=== PATIENT | male | born 1960 | race African-American/Black ===

== ENCOUNTER 2018-04-16 19:24 | Inpatient (IN) | payer MEDICAID ==
[~2018-04-16] VITALS: Ht 180.3 cm; Wt 82.6 kg
[2018-04-16 22:54] LABS: BASOPHILS % 1.4 % (0.0-2.0); EOSINOPHILS % 0.4 % (0.0-5.0); HEMOGLOBIN. 12.2 g/dL (14.0-18.0); LYMPHOCYTES % 21.6 % (20.0-50.0); MEAN CORPUSCULAR VOLUME 74.9 fL (80.0-94.0); MEAN PLATELET VOLUME 9.3 fl (7.4-10.4); MONOCYTES % 10.9 % (2.0-8.0); NEUTROPHILS % 65.7 % (40.0-76.0); PLATELET 150 x1000/uL (130-400); RED BLOOD CELL COUNT 5.07 mill/uL (4.7-6.1); RED CELL DISTRIBUTION WIDTH 20.7 % (11.6-14.6)
[2018-04-16 22:57] LABS: CHLORIDE 104 mEq/L (98-107)
[2018-04-16 23:00] LABS: INR 1.6; PROTHROMBIN TIME 16.1 sec (9.1-11.1)
[2018-04-16] MEDS ORDERED: FUROSEMIDE 40MG/4ML VIAL IV ONE (23:15)
[2018-04-16] MEDS ORDERED: ASPIRIN 81MG TABLET PO ONE (23:15)
[2018-04-17] MEDS: CLONIDINE 0.1MG TABLET PO PRN ×2 (11:14→12:27)
[2018-04-17 12:24] LABS: CHLORIDE 102 mEq/L (98-107)
[2018-04-17] MEDS: NITROGLYCERIN 0.4MG TABLET SL SL PRN ×2 (12:27→12:31)
[2018-04-17] MEDS ORDERED: FUROSEMIDE 40MG/4ML VIAL IVP ONE (12:30)
[2018-04-17] MEDS ORDERED: IPRATROPIUM/ALBUTEROL 0.5-3(2.5)MG/3ML NEB HHN PRN (12:30)
[2018-04-17] MEDS ORDERED: ONDANSETRON HCL 4MG/2ML INJ IV PRN (12:30)
[2018-04-17] MEDS ORDERED: ACETAMINOPHEN 325MG TABLET PO PRN (12:30)
[2018-04-17] MEDS ORDERED: CLONIDINE 0.1MG TABLET PO PRN (12:30)
[2018-04-17] MEDS ORDERED: NITROGLYCERIN 0.4MG TABLET SL SL PRN ×2 (12:30)
[2018-04-17] MEDS ORDERED: ENALAPRIL 2.5MG/2ML VIAL 2ML IV ONE (12:45)
[2018-04-17 13:31] LABS: BG BASE EXCESS -1.6 mmol/L (-2.0-2.0); BG CARBOXYHEMOGLOBIN 1.1 % (0.5-1.5); BG DEOXYHEMOGLOBIN 6.7 % (0.0-5.0); BG FRACTION INSPIRED OXYGEN 21; BG HCO3 ACT 21.2 mmol/L (22.0-26.0); BG METHEMOGLOBIN 0.3 % (0.0-1.5); BG OXYGEN SATURATION 93.2 % (92.0-98.5); BG OXYHEMOGLOBIN 91.9 % (94.0-97.0); BG PCO2 30.3 mmHg (35.0-45.0); BG PH 7.462 (7.350-7.450); BG SAMPLE SITE LEFT RADIAL; BG VENT MODE ROOM AIR
[2018-04-17 16:00] VITALS: BP_SYST 148; BP_SYST 153; BP_DIAS 100; BP_DIAS 107; BP_DIAS 98
[2018-04-17 17:24] LABS: D-DIMER 1.62 mg/L FEU (<0.50); INR 1.7; PROTHROMBIN TIME 17.1 sec (9.1-11.1)
[2018-04-17] MEDS: LOSARTAN POTASSIUM 100 MG TABLET PO SCH (17:45)
[2018-04-17] MEDS: FUROSEMIDE 40MG/4ML VIAL IVP SCH (17:45)
[2018-04-17] MEDS: AMLODIPINE 2.5MG TABLET PO SCH (17:45)
[2018-04-17] MEDS: NITROGLYCERIN OINT 1GM/INCH UDPKT TD SCH ×2 (17:46→22:54)
[2018-04-17] MEDS: POTASSIUM CHLORIDE 20MEQ TABLET SR PO SCH (17:46)
[2018-04-17 17:54] LABS: HEPATITIS B SURFACE ANTIGEN NEGATIVE
[2018-04-17 18:24] LABS: HEPATITIS A AB IGM NEGATIVE (NEGATIVE)
[2018-04-17 20:00] VITALS: BP 146/116
[2018-04-17] MEDS: CARVEDILOL 6.25 MG TABLET PO SCH (20:54)
[2018-04-17] MEDS ORDERED: LOSARTAN POTASSIUM 25 MG TABLET PO SCH (21:00)
[2018-04-18] VITALS: BP 122/75
[2018-04-18 04:00] VITALS: BP 114/72
[2018-04-18] MEDS: NITROGLYCERIN OINT 1GM/INCH UDPKT TD SCH ×4 (05:18→23:49)
[2018-04-18] MEDS: FUROSEMIDE 40MG/4ML VIAL IVP SCH ×2 (06:53→17:36)
[2018-04-18 08:00] VITALS: BP 127/88
[2018-04-18 08:05] LABS: BASOPHILS % 0.4 % (0.0-2.0); EOSINOPHILS % 0.1 % (0.0-5.0); HEMATOCRIT. 36.2 % (42.0-52.0); HEMOGLOBIN. 11.7 g/dL (14.0-18.0); LYMPHOCYTES % 16.9 % (20.0-50.0); MEAN CORPUSCULAR VOLUME 74.6 fL (80.0-94.0); MONOCYTES % 13.4 % (2.0-8.0); NEUTROPHILS % 69.2 % (40.0-76.0); PLATELET 149 x1000/uL (130-400); RED BLOOD CELL COUNT 4.86 mill/uL (4.7-6.1); RED CELL DISTRIBUTION WIDTH 20.7 % (11.6-14.6)
[2018-04-18 08:13] LABS: CHLORIDE 99 mEq/L (98-107)
[2018-04-18 08:20] LABS: LDL CHOLESTEROL 87 mg/dL (5-100)
[2018-04-18 08:21] LABS: HDL CHOLESTEROL 24 mg/dL (40-59)
[2018-04-18 08:50] LABS: DIGOXIN < 0.1 ng/mL (0.9-2.0)
[2018-04-18] MEDS: CARVEDILOL 6.25 MG TABLET PO SCH ×2 (09:54→20:43)
[2018-04-18] MEDS: AMLODIPINE 2.5MG TABLET PO SCH ×2 (09:54→20:43)
[2018-04-18] MEDS: ASPIRIN 81MG TABLET PO SCH (09:54)
[2018-04-18] MEDS: LOSARTAN POTASSIUM 100 MG TABLET PO SCH (09:54)
[2018-04-18] MEDS: POTASSIUM CHLORIDE 20MEQ TABLET SR PO SCH ×2 (09:54→17:36)
[2018-04-18 12:00] VITALS: BP 143/81
[2018-04-18 14:46] LABS: CLARITY URINE CLEAR (CLEAR); COLOR URINE YELLOW (YELLOW); KETONES URINE NEGATIVE (NEGATIVE); LEUKOCYTE ESTERASE URINE NEGATIVE (NEGATIVE); NITRITE URINE NEGATIVE (NEGATIVE); OCCULT BLOOD URINE NEGATIVE (NEGATIVE); PH URINE 7.5 (4.5-8.0); PROTEIN URINE NEGATIVE (NEGATIVE); SPECIFIC GRAVITY URINE 1.005 (1.005-1.030)
[2018-04-18 15:05] LABS: *AMPHETAMINES SCREEN URINE NEGATIVE (NEGATIVE); *BARBITURATES SCREEN URINE NEGATIVE (NEGATIVE); *BENZODIAZEPINES SCREEN URINE NEGATIVE (NEGATIVE)
[2018-04-18 15:06] LABS: *COCAINE SCREEN URINE PRESUMTIVE POSITIVE (NEGATIVE); CANNABINOID URINE SCREEN PRESUMTIVE POSITIVE (NEGATIVE); METHADONE URINE SCREEN NEGATIVE (NEGATIVE); OPIATES URINE SCREEN NEGATIVE (NEGATIVE); PHENCYCLIDINE URINE SCREEN NEGATIVE (NEGATIVE)
[2018-04-18 16:00] VITALS: BP 120/90
[2018-04-18 20:00] VITALS: BP 117/86
[2018-04-19] VITALS: BP 129/77
[2018-04-19 04:00] VITALS: BP 113/80
[2018-04-19] MEDS: NITROGLYCERIN OINT 1GM/INCH UDPKT TD SCH ×3 (05:00→16:55)
[2018-04-19] MEDS: FUROSEMIDE 40MG/4ML VIAL IVP SCH ×2 (06:23→16:55)
[2018-04-19 06:43] LABS: BASOPHILS % 0.5 % (0.0-2.0); EOSINOPHILS % 0.1 % (0.0-5.0); HEMATOCRIT. 35.5 % (42.0-52.0); HEMOGLOBIN. 11.6 g/dL (14.0-18.0); LYMPHOCYTES % 14.7 % (20.0-50.0); MEAN CORPUSCULAR HEMOGLOBIN 24.1 pg (28.0-32.0); MEAN CORPUSCULAR VOLUME 74.1 fL (80.0-94.0); MEAN PLATELET VOLUME 9.2 fl (7.4-10.4); MONOCYTES % 14.6 % (2.0-8.0); NEUTROPHILS % 70.1 % (40.0-76.0); PLATELET 144 x1000/uL (130-400); RED CELL DISTRIBUTION WIDTH 20.6 % (11.6-14.6)
[2018-04-19 06:44] LABS: CHLORIDE 94 mEq/L (98-107)
[2018-04-19 08:00] VITALS: BP 121/80
[2018-04-19] MEDS: AMLODIPINE 2.5MG TABLET PO SCH (09:00)
[2018-04-19] MEDS: ASPIRIN 81MG TABLET PO SCH (09:19)
[2018-04-19] MEDS: POTASSIUM CHLORIDE 20MEQ TABLET SR PO SCH ×2 (09:19→16:55)
[2018-04-19] MEDS: CARVEDILOL 6.25 MG TABLET PO SCH (09:19)
[2018-04-19] MEDS: LOSARTAN POTASSIUM 100 MG TABLET PO SCH (09:19)
[2018-04-19] MEDS ORDERED: POTASSIUM CHLORIDE 20MEQ TABLET SR PO NR (10:15)
[2018-04-19 15:26] VITALS: BP 102/65
[2018-04-19 16:00] VITALS: BP 118/59
== END 2018-04-19 17:50 | disposition home or self-care (01) | DRG 133 ==
LOC: ER 19:24 → 8WST 23:31 → EDBEDREQ 23:34 → EDBEDREQTM 23:34 → ENRESERV 04-17 14:22
PROVIDERS: ADMIT Internal Medicine; ATTEND Internal Medicine
DX: J96.00 Acute respiratory failure, unspecified whether with hypoxia or hypercapnia (principal); I50.43 Acute on chronic combined systolic (congestive) and diastolic (congestive) heart failure; D68.9 Coagulation defect, unspecified; Z86.74 Personal history of sudden cardiac arrest; I11.0 Hypertensive heart disease with heart failure; E78.5 Hyperlipidemia, unspecified; D64.9 Anemia, unspecified; R74.0 Nonspecific elevation of levels of transaminase and lactic acid dehydrogenase [LDH]; E78.00 Pure hypercholesterolemia, unspecified; E87.6 Hypokalemia; F12.90 Cannabis use, unspecified, uncomplicated; F14.10 Cocaine abuse, uncomplicated; I25.10 Atherosclerotic heart disease of native coronary artery without angina pectoris; I25.5 Ischemic cardiomyopathy; I45.10 Unspecified right bundle-branch block; R73.9 Hyperglycemia, unspecified; I25.2 Old myocardial infarction; Z95.1 Presence of aortocoronary bypass graft; Z87.891 Personal history of nicotine dependence
CPT/HCPCS: 36415; 36600; 71045; 80048; 80061; 80162; 80305; 82375; 82805; 82962; 83036; 83880; 84443; 84484; 85379; 86705; 86709; 86803; 87340; 93005; 93306; 93970; 96374; 96375; 99291; J1940

== ENCOUNTER 2018-06-14 11:14 | Inpatient (IN) | payer MEDICAID ==
[~2018-06-14] VITALS: Ht 180.3 cm; Wt 86.6 kg
[2018-06-14 12:30] LABS: BASOPHILS % 0.6 % (0.0-2.0); EOSINOPHILS % 0.4 % (0.0-5.0); HEMATOCRIT. 43.1 % (42.0-52.0); HEMOGLOBIN. 13.8 g/dL (14.0-18.0); LYMPHOCYTES % 25.1 % (20.0-50.0); MEAN CORPUSCULAR HEMOGLOBIN 23.7 pg (28.0-32.0); MEAN PLATELET VOLUME 9.7 fl (7.4-10.4); MONOCYTES % 13.3 % (2.0-8.0); NEUTROPHILS % 60.6 % (40.0-76.0); PLATELET 155 x1000/uL (130-400); RED BLOOD CELL COUNT 5.82 mill/uL (4.7-6.1); RED CELL DISTRIBUTION WIDTH 21.9 % (11.6-14.6)
[2018-06-14] MEDS ORDERED: FUROSEMIDE 40MG/4ML VIAL IV ONE (12:30)
[2018-06-14] MEDS ORDERED: NITROGLYCERIN OINT 1GM/INCH UDPKT TD ONE (12:30)
[2018-06-14] MEDS ORDERED: ASPIRIN 325MG EC TABLET PO ONE (12:30)
[2018-06-14 12:38] LABS: PROTHROMBIN TIME 20.2 sec (9.6-11.0)
[2018-06-14 12:39] LABS: CHLORIDE 95 mEq/L (98-107)
[2018-06-14] MEDS ORDERED: POTASSIUM CHLORIDE 20MEQ TABLET SR PO SCH ×2 (16:00→17:30)
[2018-06-14] MEDS ORDERED: MAGNESIUM/ALUMINUM HYDROXIDE/SIMETHICONE 30ML UDC PO PRN (16:15)
[2018-06-14] MEDS ORDERED: ACETAMINOPHEN 325MG TABLET PO PRN (16:15)
[2018-06-14] MEDS ORDERED: ONDANSETRON HCL 4MG/2ML INJ IV PRN (16:15)
[2018-06-14] MEDS ORDERED: ENOXAPARIN 40MG/0.4ML SYR SUBCUT SCH (16:15)
[2018-06-14] MEDS ORDERED: MAGNESIUM HYDROXIDE 400MG/5ML 30ML UDC PO PRN (16:15)
[2018-06-14] MEDS ORDERED: TEMAZEPAM 15MG CAPSULE PO PRN (16:15)
[2018-06-14] MEDS ORDERED: CLONIDINE 0.1MG TABLET PO PRN (16:15)
[2018-06-14] MEDS ORDERED: GUAIFENESIN 200MG/10ML SUGAR FREE UDC PO PRN (16:15)
[2018-06-14 17:24] VITALS: BP 145/102
[2018-06-14 17:27] VITALS: BP 145/102
[2018-06-14] MEDS ORDERED: FAMOTIDINE 20MG TABLET PO SCH (17:30)
[2018-06-14] MEDS: FUROSEMIDE 40MG/4ML VIAL IVP SCH (18:28)
[2018-06-14 20:00] VITALS: BP 138/100
[2018-06-14] MEDS ORDERED: METOLAZONE 10MG TABLET PO NR (20:00)
[2018-06-14] MEDS: FAMOTIDINE 20MG TABLET PO SCH (20:49)
[2018-06-14] MEDS: LOSARTAN POTASSIUM 50 MG TABLET PO SCH (21:03)
[2018-06-14] MEDS: SODIUM CHLORIDE 0.9% INJ 3ML FLUSH IVF SCH (21:04)
[2018-06-14] MEDS: AMLODIPINE 5MG TABLET PO SCH (21:04)
[2018-06-14] MEDS: CARVEDILOL 6.25 MG TABLET PO SCH (21:04)
[2018-06-14 23:57] VITALS: BP 131/74
[2018-06-15 04:00] VITALS: BP 133/78
[2018-06-15] MEDS: FUROSEMIDE 40MG/4ML VIAL IVP SCH ×2 (06:08→17:35)
[2018-06-15] MEDS: SODIUM CHLORIDE 0.9% INJ 3ML FLUSH IVF SCH ×3 (06:08→22:37)
[2018-06-15] MEDS: FAMOTIDINE 20MG TABLET PO SCH ×2 (08:45→22:34)
[2018-06-15] MEDS: AMLODIPINE 5MG TABLET PO SCH ×2 (08:45→22:35)
[2018-06-15] MEDS: ASPIRIN 81MG EC TABLET PO SCH (08:46)
[2018-06-15] MEDS: CARVEDILOL 6.25 MG TABLET PO SCH ×2 (08:46→22:34)
[2018-06-15] MEDS: LOSARTAN POTASSIUM 50 MG TABLET PO SCH ×2 (08:46→22:35)
[2018-06-15] MEDS: POTASSIUM CHLORIDE 20MEQ/PACKET PO SCH ×2 (08:48→17:56)
[2018-06-15 09:00] VITALS: BP 129/75
[2018-06-15 10:14] LABS: CHLORIDE 95 mEq/L (98-107)
[2018-06-15 12:00] VITALS: BP_SYST 114; BP_SYST 131; BP_DIAS 82; BP_DIAS 91
[2018-06-15 16:00] VITALS: BP_SYST 121; BP_SYST 141; BP_DIAS 80; BP_DIAS 91
[2018-06-15] MEDS ORDERED: LIDOCAINE HCL/PF 1% 2ML VIAL ONE (16:09)
[2018-06-15 16:42] LABS: BG BASE EXCESS 5.6 mmol/L (-2.0-2.0); BG CARBOXYHEMOGLOBIN 0.8 % (0.5-1.5); BG DEOXYHEMOGLOBIN 7.5 % (0.0-5.0); BG FRACTION INSPIRED OXYGEN 21; BG HCO3 ACT 27.8 mmol/L (22.0-26.0); BG METHEMOGLOBIN 0.1 % (0.0-1.5); BG OXYGEN SATURATION 92.4 % (92.0-98.5); BG OXYHEMOGLOBIN 91.6 % (94.0-97.0); BG PCO2 32.8 mmHg (35.0-45.0); BG PH 7.546 (7.350-7.450); BG PO2 64.8 mmHg (75.0-100.0); BG SAMPLE SITE RIGHT BRACHIAL; BG TOTAL HEMOGLOBIN 13.4 g/dL (12.0-18.0); BG VENT MODE ROOM AIR
[2018-06-15] MEDS ORDERED: METOLAZONE 10MG TABLET PO NR (18:00)
[2018-06-15 20:00] VITALS: BP 133/90
[2018-06-15 20:40] LABS: CHLORIDE 90 mEq/L (98-107)
[2018-06-16] VITALS (7 sets, daily range): BP systolic 99–124; BP diastolic 68–86
[2018-06-16 06:33] LABS: CHLORIDE 86 mEq/L (98-107)
[2018-06-16] MEDS: FUROSEMIDE 40MG/4ML VIAL IVP SCH (06:37)
[2018-06-16] MEDS: SODIUM CHLORIDE 0.9% INJ 3ML FLUSH IVF SCH ×3 (06:41→22:41)
[2018-06-16 08:56] LABS: CLARITY URINE CLEAR (CLEAR); COLOR URINE YELLOW (YELLOW); KETONES URINE NEGATIVE (NEGATIVE); LEUKOCYTE ESTERASE URINE NEGATIVE (NEGATIVE); NITRITE URINE NEGATIVE (NEGATIVE); OCCULT BLOOD URINE NEGATIVE (NEGATIVE); PROTEIN URINE NEGATIVE (NEGATIVE); SPECIFIC GRAVITY URINE 1.008 (1.005-1.030)
[2018-06-16] MEDS: AMLODIPINE 5MG TABLET PO SCH ×2 (09:00→21:00)
[2018-06-16] MEDS: CARVEDILOL 6.25 MG TABLET PO SCH ×2 (09:05→21:00)
[2018-06-16] MEDS: ASPIRIN 81MG EC TABLET PO SCH (09:05)
[2018-06-16] MEDS: FAMOTIDINE 20MG TABLET PO SCH ×2 (09:05→22:50)
[2018-06-16] MEDS: LOSARTAN POTASSIUM 50 MG TABLET PO SCH ×2 (09:05→21:00)
[2018-06-16] MEDS ORDERED: METOLAZONE 5MG TABLET PO NR (09:45)
[2018-06-16] MEDS ORDERED: POTASSIUM CHLORIDE 20MEQ TABLET SR PO NR (12:45)
[2018-06-16] MEDS: FUROSEMIDE 100MG/10ML VIAL IVP SCH (17:08)
[2018-06-16] MEDS: POTASSIUM CHLORIDE 20MEQ TABLET SR PO SCH (17:08)
[2018-06-16] MEDS: IPRATROPIUM/ALBUTEROL 0.5-3(2.5)MG/3ML NEB INH PRN ×2 (17:12→22:28)
[2018-06-16] MEDS: MAGNESIUM OXIDE 400MG TABLET PO PRN (17:48)
[2018-06-17] VITALS: BP 99/63
[2018-06-17 04:00] VITALS: BP 101/69
[2018-06-17 05:51] LABS: CHLORIDE 81 mEq/L (98-107)
[2018-06-17 05:58] LABS: BASOPHILS % 0.4 % (0.0-2.0); EOSINOPHILS % 0.1 % (0.0-5.0); HEMATOCRIT. 34.8 % (42.0-52.0); HEMOGLOBIN. 11.7 g/dL (14.0-18.0); LYMPHOCYTES % 14.5 % (20.0-50.0); MEAN CORPUSCULAR HEMOGLOBIN 24.2 pg (28.0-32.0); MEAN CORPUSCULAR VOLUME 72.4 fL (80.0-94.0); MEAN PLATELET VOLUME 9.3 fl (7.4-10.4); MONOCYTES % 13.9 % (2.0-8.0); NEUTROPHILS % 71.1 % (40.0-76.0); PLATELET 136 x1000/uL (130-400); RED BLOOD CELL COUNT 4.81 mill/uL (4.7-6.1); RED CELL DISTRIBUTION WIDTH 21.6 % (11.6-14.6)
[2018-06-17] MEDS: FUROSEMIDE 100MG/10ML VIAL IVP SCH ×2 (07:03→18:09)
[2018-06-17] MEDS: SODIUM CHLORIDE 0.9% INJ 3ML FLUSH IVF SCH ×3 (07:09→21:15)
[2018-06-17 08:00] VITALS: BP 102/69
[2018-06-17] MEDS: LOSARTAN POTASSIUM 50 MG TABLET PO SCH ×2 (09:00→21:00)
[2018-06-17] MEDS: CARVEDILOL 6.25 MG TABLET PO SCH ×2 (09:00→21:00)
[2018-06-17] MEDS: AMLODIPINE 5MG TABLET PO SCH ×2 (09:00→21:00)
[2018-06-17] MEDS: MAGNESIUM OXIDE 400MG TABLET PO PRN (09:14)
[2018-06-17] MEDS: POTASSIUM CHLORIDE 20MEQ TABLET SR PO SCH ×2 (09:14→18:09)
[2018-06-17] MEDS: FAMOTIDINE 20MG TABLET PO SCH ×2 (09:15→21:15)
[2018-06-17] MEDS: ASPIRIN 81MG EC TABLET PO SCH (09:15)
[2018-06-17 10:06] LABS: PHOSPHORUS 3.3 mg/dL (2.5-4.9)
[2018-06-17] MEDS ORDERED: MAGNESIUM 1 G PREMIX 100 ML IV NR (11:00)
[2018-06-17 12:00] VITALS: BP 98/67
[2018-06-17 16:00] VITALS: BP 96/64
[2018-06-17 20:00] VITALS: BP 101/77
[2018-06-18] VITALS: BP 114/78
[2018-06-18 04:00] VITALS: BP 114/77
[2018-06-18] MEDS: SODIUM CHLORIDE 0.9% INJ 3ML FLUSH IVF SCH ×3 (06:24→20:55)
[2018-06-18 06:48] LABS: CHLORIDE 77 mEq/L (98-107)
[2018-06-18] MEDS: FUROSEMIDE 100MG/10ML VIAL IVP SCH (06:58)
[2018-06-18 06:59] LABS: INR 1.2; PROTHROMBIN TIME 12.5 sec (9.6-11.0)
[2018-06-18 07:00] LABS: PHOSPHORUS 2.9 mg/dL (2.5-4.9)
[2018-06-18 07:01] LABS: TOTAL IRON BINDING CAPACITY 375 ug/dL (250-450)
[2018-06-18 07:39] LABS: BASOPHILS % 0.1 % (0.0-2.0); EOSINOPHILS % 0.1 % (0.0-5.0); HEMATOCRIT. 39.3 % (42.0-52.0); HEMOGLOBIN. 12.8 g/dL (14.0-18.0); LYMPHOCYTES % 11.6 % (20.0-50.0); MEAN CORPUSCULAR HEMOGLOBIN 23.5 pg (28.0-32.0); MEAN CORPUSCULAR VOLUME 72.4 fL (80.0-94.0); MEAN PLATELET VOLUME 9.5 fl (7.4-10.4); MONOCYTES % 14.4 % (2.0-8.0); NEUTROPHILS % 73.8 % (40.0-76.0); PLATELET 147 x1000/uL (130-400); RED BLOOD CELL COUNT 5.43 mill/uL (4.7-6.1); RED CELL DISTRIBUTION WIDTH 21.9 % (11.6-14.6)
[2018-06-18 07:53] LABS: FOLIC ACID (FOLATE) SERUM 14.7 ng/mL (>5.38)
[2018-06-18 08:00] VITALS: BP 102/73
[2018-06-18] MEDS ORDERED: HYDROCODONE/ACETAMINOPHEN 5/325MG TABLET PO PRN (08:30)
[2018-06-18] MEDS ORDERED: POTASSIUM CHLORIDE 20MEQ TABLET SR PO NR (08:30)
[2018-06-18] MEDS ORDERED: POTASSIUM CHLORIDE 20MEQ/PACKET PO NR (09:00)
[2018-06-18] MEDS: CARVEDILOL 6.25 MG TABLET PO SCH ×2 (09:00→20:54)
[2018-06-18] MEDS: AMLODIPINE 5MG TABLET PO SCH ×2 (09:00→20:54)
[2018-06-18] MEDS: LOSARTAN POTASSIUM 50 MG TABLET PO SCH ×2 (09:00→20:55)
[2018-06-18] MEDS: FAMOTIDINE 20MG TABLET PO SCH ×2 (09:13→20:55)
[2018-06-18] MEDS: ASPIRIN 81MG EC TABLET PO SCH (09:13)
[2018-06-18] MEDS: FUROSEMIDE 40MG TABLET PO SCH (09:20)
[2018-06-18] MEDS ORDERED: MAGNESIUM 4 G PREMIX 100 ML IV ONE (10:00)
[2018-06-18 12:00] VITALS: BP 106/74
[2018-06-18 16:00] VITALS: BP 100/69
[2018-06-18] MEDS: FERROUS SULFATE 325MG TABLET PO SCH (18:45)
[2018-06-18] MEDS: DOCUSATE SODIUM 100MG CAPSULE PO SCH (18:46)
[2018-06-18 19:47] VITALS: BP 115/69
[2018-06-19] VITALS (7 sets, daily range): BP systolic 90–121; BP diastolic 40–68
[2018-06-19] MEDS: SODIUM CHLORIDE 0.9% INJ 3ML FLUSH IVF SCH (05:23)
[2018-06-19 05:43] LABS: HEMATOCRIT. 39.2 % (42.0-52.0); MEAN CORPUSCULAR VOLUME 72.7 fL (80.0-94.0); MEAN PLATELET VOLUME 9.4 fl (7.4-10.4); PLATELET 175 x1000/uL (130-400); RED CELL DISTRIBUTION WIDTH 21.6 % (11.6-14.6)
[2018-06-19 06:37] LABS: CHLORIDE 80 mEq/L (98-107)
[2018-06-19 06:45] LABS: PHOSPHORUS 3.1 mg/dL (2.5-4.9)
[2018-06-19] MEDS: FUROSEMIDE 40MG TABLET PO SCH (08:50)
[2018-06-19] MEDS: ASPIRIN 81MG EC TABLET PO SCH (08:50)
[2018-06-19] MEDS: DOCUSATE SODIUM 100MG CAPSULE PO SCH ×2 (08:50→17:39)
[2018-06-19] MEDS: FAMOTIDINE 20MG TABLET PO SCH (08:50)
[2018-06-19] MEDS: FERROUS SULFATE 325MG TABLET PO SCH ×2 (08:50→17:39)
[2018-06-19] MEDS: LOSARTAN POTASSIUM 50 MG TABLET PO SCH (08:51)
[2018-06-19] MEDS: AMLODIPINE 5MG TABLET PO SCH (08:51)
[2018-06-19] MEDS: CARVEDILOL 6.25 MG TABLET PO SCH (08:51)
[2018-06-19] MEDS ORDERED: POTASSIUM CHLORIDE 20MEQ TABLET SR PO SCH (09:00)
[2018-06-19 15:45] LABS: PLATELET ESTIMATE NORMAL
== END 2018-06-19 19:43 | disposition home or self-care (01) | DRG 194 ==
LOC: ER 11:14 → 7WST 13:20 → EDBEDREQ 13:27 → ENRESERV 14:43
PROVIDERS: ADMIT Internal Medicine; ATTEND Internal Medicine
DX: I11.0 Hypertensive heart disease with heart failure (principal); E87.4 Mixed disorder of acid-base balance; D68.9 Coagulation defect, unspecified; E87.1 Hypo-osmolality and hyponatremia; E83.42 Hypomagnesemia; I50.23 Acute on chronic systolic (congestive) heart failure; D50.9 Iron deficiency anemia, unspecified; F19.90 Other psychoactive substance use, unspecified, uncomplicated; I34.0 Nonrheumatic mitral (valve) insufficiency; R74.0 Nonspecific elevation of levels of transaminase and lactic acid dehydrogenase [LDH]; I25.9 Chronic ischemic heart disease, unspecified; I42.9 Cardiomyopathy, unspecified; E66.9 Obesity, unspecified; E78.00 Pure hypercholesterolemia, unspecified; E87.6 Hypokalemia; F17.200 Nicotine dependence, unspecified, uncomplicated; I25.10 Atherosclerotic heart disease of native coronary artery without angina pectoris; I25.2 Old myocardial infarction; T50.2X5A Adverse effect of carbonic-anhydrase inhibitors, benzothiadiazides and other diuretics, initial encounter; Z82.49 Family history of ischemic heart disease and other diseases of the circulatory system; Z91.14 Patient's other noncompliance with medication regimen; Z95.1 Presence of aortocoronary bypass graft; Z95.5 Presence of coronary angioplasty implant and graft; Z68.26 Body mass index [BMI] 26.0-26.9, adult
CPT/HCPCS: 36415; 36600; 71045; 80048; 80076; 82375; 82607; 82728; 82746; 82805; 82962; 83540; 83550; 83735; 83880; 84100; 84132; 84484; 93005; 93970; 96374; 99285; J1940; J3475; J3490; J7620

== ENCOUNTER 2018-07-15 10:20 | Inpatient (IN) | payer MEDICAID ==
[~2018-07-15] VITALS: Ht 180.3 cm; Wt 88.0 kg
[2018-07-15] MEDS ORDERED: MORPHINE SULFATE 4 MG/ML CPJ (NOT FOR IM USE) IV STA (11:16)
[2018-07-15] MEDS ORDERED: ONDANSETRON HCL 4MG/2ML INJ IV STA (11:16)
[2018-07-15 11:24] LABS: HEMATOCRIT. 39.8 % (42.0-52.0); HEMOGLOBIN. 12.8 g/dL (14.0-18.0); MEAN CORPUSCULAR VOLUME 74.5 fL (80.0-94.0); PLATELET 193 x1000/uL (130-400); RED BLOOD CELL COUNT 5.33 mill/uL (4.7-6.1); RED CELL DISTRIBUTION WIDTH 23.2 % (11.6-14.6)
[2018-07-15 11:28] LABS: CHLORIDE 100 mEq/L (98-107)
[2018-07-15 11:30] LABS: INR 1.9; PARTIAL THROMBOPLASTIN TIME 31.5 sec (23.4-31.0); PROTHROMBIN TIME 18.7 sec (9.6-11.0)
[2018-07-15] MEDS ORDERED: NITROGLYCERIN OINT 1GM/INCH UDPKT TD ONE (11:30)
[2018-07-15] MEDS ORDERED: ASPIRIN 81MG TABLET PO ONE (11:30)
[2018-07-15] MEDS ORDERED: DILTIAZEM HCL 5MG/ML 5ML VIAL IV ONE (11:30)
[2018-07-15 11:32] LABS: ETHANOL BLOOD < 10 mg/dL
[2018-07-15 11:49] LABS: PLATELET ESTIMATE NORMAL
[2018-07-15] MEDS ORDERED: ACETAMINOPHEN 325MG TABLET PO PRN (12:15)
[2018-07-15] MEDS ORDERED: ONDANSETRON HCL 4MG/2ML INJ IV PRN (12:15)
[2018-07-15] MEDS ORDERED: FUROSEMIDE 40MG/4ML VIAL IVP SCH (17:00)
[2018-07-15 17:49] VITALS: BP 122/90
[2018-07-15] MEDS ORDERED: DOCU-272 MT (17:59)
[2018-07-15] MEDS ORDERED: ASPI-1159 MT (17:59)
[2018-07-15] MEDS ORDERED: FAMO20TA8 MT (17:59)
[2018-07-15] MEDS ORDERED: FE F MT (17:59)
[2018-07-15] MEDS ORDERED: CARV6.2548 MT (17:59)
[2018-07-15] MEDS ORDERED: LOSA50TA20 MT (17:59)
[2018-07-15] MEDS ORDERED: AMLO5TAB88 MT (17:59)
[2018-07-15] MEDS ORDERED: POTA20TA82 MT (17:59)
[2018-07-15] MEDS ORDERED: FURO40TA5 MT (17:59)
[2018-07-15 18:00] VITALS: BP 122/90
[2018-07-15 20:14] VITALS: BP 113/76
[2018-07-16] VITALS: BP 104/72
[2018-07-16 00:24] LABS: CANNABINOID URINE SCREEN PRESUMTIVE POSITIVE (NEGATIVE); METHADONE URINE SCREEN NEGATIVE (NEGATIVE); OPIATES URINE SCREEN PRESUMTIVE POSITIVE (NEGATIVE); PHENCYCLIDINE URINE SCREEN NEGATIVE (NEGATIVE)
[2018-07-16 00:25] LABS: *AMPHETAMINES SCREEN URINE NEGATIVE (NEGATIVE); *BARBITURATES SCREEN URINE NEGATIVE (NEGATIVE); *BENZODIAZEPINES SCREEN URINE NEGATIVE (NEGATIVE); *COCAINE SCREEN URINE PRESUMTIVE POSITIVE (NEGATIVE)
[2018-07-16 04:00] VITALS: BP 148/73
[2018-07-16 06:45] LABS: INR 1.7; PROTHROMBIN TIME 17.3 sec (9.6-11.0)
[2018-07-16 06:46] LABS: HEMATOCRIT. 35.7 % (42.0-52.0); HEMOGLOBIN. 11.6 g/dL (14.0-18.0); MEAN CORPUSCULAR HEMOGLOBIN 24.2 pg (28.0-32.0); MEAN CORPUSCULAR VOLUME 74.7 fL (80.0-94.0); MEAN PLATELET VOLUME 9.3 fl (7.4-10.4); PLATELET 132 x1000/uL (130-400); RED BLOOD CELL COUNT 4.78 mill/uL (4.7-6.1); RED CELL DISTRIBUTION WIDTH 23.6 % (11.6-14.6)
[2018-07-16 07:11] LABS: CHLORIDE 100 mEq/L (98-107)
[2018-07-16 08:00] VITALS: BP 106/82
[2018-07-16] MEDS: POTASSIUM CHLORIDE 20MEQ TABLET SR PO SCH (08:16)
[2018-07-16] MEDS: FUROSEMIDE 100MG/10ML VIAL IVP SCH ×2 (08:16→16:39)
[2018-07-16] MEDS: ASPIRIN 81MG TABLET PO SCH (08:17)
[2018-07-16] MEDS: ENOXAPARIN 40MG/0.4ML SYR SUBCUT SCH (08:19)
[2018-07-16] MEDS: LOSARTAN POTASSIUM 25 MG TABLET PO SCH (08:27)
[2018-07-16] MEDS ORDERED: KCL 20MEQ/100ML PREMIX 100 ML IV SCH (10:00)
[2018-07-16 11:34] LABS: PLATELET ESTIMATE NORMAL
[2018-07-16 12:00] VITALS: BP 95/71
[2018-07-16 16:00] VITALS: BP 95/70
[2018-07-16 20:00] VITALS: BP 111/90
[2018-07-16] MEDS: MORPHINE SULFATE 4 MG/ML CPJ (NOT FOR IM USE) IV PRN (20:08)
[2018-07-17] VITALS (7 sets, daily range): BP systolic 103–161; BP diastolic 71–83
[2018-07-17] MEDS: FUROSEMIDE 100MG/10ML VIAL IVP SCH ×3 (06:04→21:31)
[2018-07-17 06:46] LABS: CHLORIDE 99 mEq/L (98-107)
[2018-07-17 06:58] LABS: HEMATOCRIT. 36.5 % (42.0-52.0); MEAN CORPUSCULAR HEMOGLOBIN 24.2 pg (28.0-32.0); MEAN CORPUSCULAR VOLUME 73.9 fL (80.0-94.0); MEAN PLATELET VOLUME 8.8 fl (7.4-10.4); PLATELET 130 x1000/uL (130-400); RED BLOOD CELL COUNT 4.94 mill/uL (4.7-6.1); RED CELL DISTRIBUTION WIDTH 23.3 % (11.6-14.6)
[2018-07-17] MEDS: POTASSIUM CHLORIDE 20MEQ TABLET SR PO SCH (09:24)
[2018-07-17] MEDS: LOSARTAN POTASSIUM 25 MG TABLET PO SCH (09:24)
[2018-07-17] MEDS: ASPIRIN 81MG TABLET PO SCH (09:24)
[2018-07-17] MEDS: ENOXAPARIN 40MG/0.4ML SYR SUBCUT SCH (09:24)
[2018-07-17] MEDS ORDERED: POTASSIUM CHLORIDE 20MEQ TABLET SR PO NR (11:15)
[2018-07-17 14:12] LABS: NUCLEATED RED BLOOD CELLS 1 /100 WBC; PLATELET ESTIMATE NORMAL
[2018-07-17] MEDS: APIXABAN 5 MG TABLET PO SCH (16:33)
[2018-07-17] MEDS ORDERED: CARV3.1242 PO (20:26)
[2018-07-17] MEDS ORDERED: LOSA25TA12 PO (20:26)
[2018-07-17] MEDS: CARVEDILOL 3.125 MG TABLET PO SCH (20:49)
[2018-07-17] MEDS ORDERED: ATORVASTATIN CALCIUM 40MG TABLET PO SCH (21:00)
[2018-07-17] MEDS: MORPHINE SULFATE 4 MG/ML CPJ (NOT FOR IM USE) IV PRN (21:31)
[2018-07-18] VITALS: BP 117/80
[2018-07-18 04:00] VITALS: BP 90/69
[2018-07-18 07:18] LABS: HEMATOCRIT. 36.3 % (42.0-52.0); HEMOGLOBIN. 11.9 g/dL (14.0-18.0); MEAN CORPUSCULAR HEMOGLOBIN 24.5 pg (28.0-32.0); MEAN CORPUSCULAR VOLUME 74.7 fL (80.0-94.0); MEAN PLATELET VOLUME 8.7 fl (7.4-10.4); PLATELET 130 x1000/uL (130-400); RED BLOOD CELL COUNT 4.86 mill/uL (4.7-6.1); RED CELL DISTRIBUTION WIDTH 23.8 % (11.6-14.6)
[2018-07-18 07:24] LABS: CHLORIDE 97 mEq/L (98-107)
[2018-07-18 08:00] VITALS: BP 106/79
[2018-07-18] MEDS: POTASSIUM CHLORIDE 20MEQ TABLET SR PO SCH (08:57)
[2018-07-18] MEDS: APIXABAN 5 MG TABLET PO SCH (08:57)
[2018-07-18] MEDS: ASPIRIN 81MG TABLET PO SCH (08:57)
[2018-07-18] MEDS: LOSARTAN POTASSIUM 25 MG TABLET PO SCH (09:00)
[2018-07-18] MEDS: CARVEDILOL 3.125 MG TABLET PO SCH (09:00)
[2018-07-18 12:00] VITALS: BP 121/99
[2018-07-18 13:58] LABS: PLATELET ESTIMATE NORMAL
== END 2018-07-18 16:20 | disposition home or self-care (01) | DRG 194 ==
LOC: ER 10:20 → 7WST 11:49 → EDBEDREQ 11:51 → ENRESERV 15:27
PROVIDERS: ADMIT Internal Medicine; ATTEND Internal Medicine
DX: I11.0 Hypertensive heart disease with heart failure (principal); D68.9 Coagulation defect, unspecified; E87.1 Hypo-osmolality and hyponatremia; Z95.1 Presence of aortocoronary bypass graft; D64.9 Anemia, unspecified; E11.9 Type 2 diabetes mellitus without complications; I48.2 Chronic atrial fibrillation; I50.23 Acute on chronic systolic (congestive) heart failure; E78.5 Hyperlipidemia, unspecified; E87.6 Hypokalemia; F12.90 Cannabis use, unspecified, uncomplicated; F14.90 Cocaine use, unspecified, uncomplicated; R74.0 Nonspecific elevation of levels of transaminase and lactic acid dehydrogenase [LDH]; F17.200 Nicotine dependence, unspecified, uncomplicated; I25.10 Atherosclerotic heart disease of native coronary artery without angina pectoris; I25.5 Ischemic cardiomyopathy; I34.0 Nonrheumatic mitral (valve) insufficiency; Z79.82 Long term (current) use of aspirin; Z91.19 Patient's noncompliance with other medical treatment and regimen; I25.2 Old myocardial infarction; Z71.6 Tobacco abuse counseling; Z79.84 Long term (current) use of oral hypoglycemic drugs
CPT/HCPCS: 36415; 71045; 80048; 80305; 80320; 82962; 83735; 83880; 84443; 84484; 93005; 93970; 96374; 96375; 97162; 99291; J1650; J1940; J2270; J2405; J3480; J3490; J7040; G0480

== ENCOUNTER 2018-09-16 11:38 | Inpatient (IN) | payer MEDICAID ==
[~2018-09-16] VITALS: Ht 180.3 cm; Wt 78.0 kg
[~2018-09-16 11:38] MED LIST: AMLO5TAB88 MT; ASPI-1393 MT; CARV3.1242 PO; DOCU-272 MT; FAMO20TA8 MT; FE F MT; LOSA25TA26 PO; POTA20TA82 MT
[2018-09-16] MEDS ORDERED: DILTIAZEM HCL 5MG/ML 5ML VIAL IV ONE (12:15)
[2018-09-16 12:30] LABS: BASOPHILS % 0.7 % (0.0-2.0); EOSINOPHILS % 0.3 % (0.0-5.0); HEMATOCRIT. 40.1 % (42.0-52.0); LYMPHOCYTES % 24.4 % (20.0-50.0); MEAN CORPUSCULAR HEMOGLOBIN 25.4 pg (28.0-32.0); MEAN CORPUSCULAR VOLUME 78.4 fL (80.0-94.0); MEAN PLATELET VOLUME 9.9 fl (7.4-10.4); MONOCYTES % 12.7 % (2.0-8.0); NEUTROPHILS % 61.9 % (40.0-76.0); PLATELET 111 x1000/uL (130-400); RED BLOOD CELL COUNT 5.12 mill/uL (4.7-6.1); RED CELL DISTRIBUTION WIDTH 21.3 % (11.6-14.6)
[2018-09-16 12:38] LABS: CHLORIDE 98 mEq/L (98-107)
[2018-09-16 12:40] LABS: INR 2.3; PARTIAL THROMBOPLASTIN TIME 39.9 sec (23.4-31.0); PROTHROMBIN TIME 23.1 sec (9.6-11.0)
[2018-09-16 12:44] LABS: ETHANOL BLOOD < 10 mg/dL
[2018-09-16 12:48] LABS: T4 FREE 1.64 ng/dL (0.76-1.46)
[2018-09-16] MEDS ORDERED: FUROSEMIDE 20MG/2ML VIAL IVP ONE (13:00)
[2018-09-16] MEDS ORDERED: ASPIRIN 81MG TABLET PO ONE (13:00)
[2018-09-16] MEDS ORDERED: MORPHINE SULFATE 4 MG/ML CPJ (NOT FOR IM USE) IV ONE (13:00)
[2018-09-16] MEDS ORDERED: ONDANSETRON HCL 4MG/2ML INJ IV ONE (13:00)
[2018-09-16 13:30] VITALS: BP 98/76
[2018-09-16] MEDS ORDERED: LORAZEPAM 0.5MG TABLET PO PRN (15:15)
[2018-09-16] MEDS ORDERED: ONDANSETRON HCL 4MG/2ML INJ IV PRN (15:15)
[2018-09-16] MEDS ORDERED: DOCUSATE SODIUM 100MG CAPSULE PO PRN (15:15)
[2018-09-16] MEDS ORDERED: ACETAMINOPHEN 325MG TABLET PO PRN (15:15)
[2018-09-16] MEDS ORDERED: CLONIDINE 0.1MG TABLET PO PRN (15:15)
[2018-09-16] MEDS ORDERED: AMLODIPINE 5MG TABLET PO SCH (15:45)
[2018-09-16] MEDS: LOSARTAN POTASSIUM 25 MG TABLET PO SCH (15:45)
[2018-09-16] MEDS ORDERED: FUROSEMIDE 40MG/4ML VIAL IV SCH (15:45)
[2018-09-16 16:00] VITALS: BP 97/71
[2018-09-16] MEDS ORDERED: APIXABAN 5 MG TABLET PO SCH (17:00)
[2018-09-16 18:00] LABS: CREATINE KINASE 83 IU/L (39-308); CREATINE KINASE MB FRACTION < 1.0 ng/mL (0.5-3.6)
[2018-09-16] MEDS: DILTIAZEM HCL 30MG TABLET PO SCH ×2 (18:00→23:43)
[2018-09-16] MEDS: FUROSEMIDE 40MG/4ML VIAL IV SCH (18:46)
[2018-09-16] MEDS ORDERED: DEXTROSE 50% WATER 50ML SYRINGE IV PRN (19:15)
[2018-09-16 20:00] VITALS: BP 115/67
[2018-09-16 20:00] LABS: CHLORIDE 100 mEq/L (98-107)
[2018-09-16] MEDS: HYDROCODONE/ACETAMINOPHEN 5/325MG TABLET PO PRN (20:49)
[2018-09-16] MEDS: BLOOD SUGAR DIAGNOSTIC STRIP TEST SCH (20:50)
[2018-09-16] MEDS: INSULIN LISPRO 100 UNITS/ML SUBCUT SCH (20:51)
[2018-09-16] MEDS ORDERED: FUROSEMIDE 20MG/2ML VIAL IV SCH (23:00)
[2018-09-17] VITALS (8 sets, daily range): BP systolic 91–155; BP diastolic 64–77
[2018-09-17 04:11] LABS: CLARITY URINE CLEAR (CLEAR); COLOR URINE DARK YELLOW (YELLOW); KETONES URINE NEGATIVE (NEGATIVE); LEUKOCYTE ESTERASE URINE NEGATIVE (NEGATIVE); NITRITE URINE NEGATIVE (NEGATIVE); OCCULT BLOOD URINE NEGATIVE (NEGATIVE); PROTEIN URINE 1+ (NEGATIVE); SPECIFIC GRAVITY URINE 1.013 (1.005-1.030)
[2018-09-17 04:30] LABS: *AMPHETAMINES SCREEN URINE NEGATIVE (NEGATIVE); *BARBITURATES SCREEN URINE NEGATIVE (NEGATIVE); *BENZODIAZEPINES SCREEN URINE NEGATIVE (NEGATIVE)
[2018-09-17 04:31] LABS: *COCAINE SCREEN URINE PRESUMTIVE POSITIVE (NEGATIVE); CANNABINOID URINE SCREEN PRESUMTIVE POSITIVE (NEGATIVE); METHADONE URINE SCREEN NEGATIVE (NEGATIVE); OPIATES URINE SCREEN PRESUMTIVE POSITIVE (NEGATIVE); PHENCYCLIDINE URINE SCREEN NEGATIVE (NEGATIVE)
[2018-09-17] MEDS: DILTIAZEM HCL 30MG TABLET PO SCH ×3 (04:55→20:19)
[2018-09-17] MEDS: FUROSEMIDE 40MG/4ML VIAL IV SCH ×2 (05:48→17:28)
[2018-09-17] MEDS: BLOOD SUGAR DIAGNOSTIC STRIP TEST SCH ×4 (05:49→20:20)
[2018-09-17] MEDS: INSULIN LISPRO 100 UNITS/ML SUBCUT SCH ×4 (08:10→20:30)
[2018-09-17] MEDS: LOSARTAN POTASSIUM 25 MG TABLET PO SCH (08:23)
[2018-09-17 08:32] LABS: BASOPHILS % 2.1 % (0.0-2.0); EOSINOPHILS % 1.5 % (0.0-5.0); HEMATOCRIT. 36.6 % (42.0-52.0); HEMOGLOBIN. 11.9 g/dL (14.0-18.0); LYMPHOCYTES % 29.8 % (20.0-50.0); MEAN CORPUSCULAR HEMOGLOBIN 25.3 pg (28.0-32.0); MEAN PLATELET VOLUME 8.8 fl (7.4-10.4); MONOCYTES % 11.9 % (2.0-8.0); NEUTROPHILS % 54.7 % (40.0-76.0); PLATELET 104 x1000/uL (130-400); RED BLOOD CELL COUNT 4.69 mill/uL (4.7-6.1); RED CELL DISTRIBUTION WIDTH 21.5 % (11.6-14.6)
[2018-09-17 08:39] LABS: INR 1.9
[2018-09-17 08:46] LABS: PHOSPHORUS 3.9 mg/dL (2.5-4.9)
[2018-09-17] MEDS: HYDROCODONE/ACETAMINOPHEN 5/325MG TABLET PO PRN (13:37)
[2018-09-17] MEDS: IPRATROPIUM/ALBUTEROL 0.5-3(2.5)MG/3ML NEB INH PRN ×2 (17:03→21:29)
[2018-09-17] MEDS: APIXABAN 5 MG TABLET PO SCH ×2 (17:17→22:00)
[2018-09-17] MEDS: GUAIFENESIN 600MG ER TABLET PO SCH (20:29)
[2018-09-18] VITALS: BP 92/72
[2018-09-18 04:00] VITALS: BP 123/75
[2018-09-18] MEDS: BLOOD SUGAR DIAGNOSTIC STRIP TEST SCH ×4 (05:09→21:34)
[2018-09-18] MEDS: DILTIAZEM HCL 30MG TABLET PO SCH ×2 (05:13→06:10)
[2018-09-18] MEDS: FUROSEMIDE 40MG/4ML VIAL IV SCH ×2 (05:14→18:22)
[2018-09-18 07:14] LABS: BASOPHILS % 0.9 % (0.0-2.0); EOSINOPHILS % 1.5 % (0.0-5.0); HEMATOCRIT. 38.6 % (42.0-52.0); HEMOGLOBIN. 12.4 g/dL (14.0-18.0); MEAN CORPUSCULAR HEMOGLOBIN 25.2 pg (28.0-32.0); MEAN CORPUSCULAR VOLUME 78.2 fL (80.0-94.0); MEAN PLATELET VOLUME 9.4 fl (7.4-10.4); MONOCYTES % 9.7 % (2.0-8.0); NEUTROPHILS % 54.9 % (40.0-76.0); PLATELET 105 x1000/uL (130-400); RED BLOOD CELL COUNT 4.94 mill/uL (4.7-6.1); RED CELL DISTRIBUTION WIDTH 21.6 % (11.6-14.6)
[2018-09-18 07:32] LABS: CHLORIDE 96 mEq/L (98-107)
[2018-09-18] MEDS: INSULIN LISPRO 100 UNITS/ML SUBCUT SCH ×4 (07:38→21:00)
[2018-09-18 08:00] VITALS: BP 111/81
[2018-09-18] MEDS: LOSARTAN POTASSIUM 25 MG TABLET PO SCH (09:00)
[2018-09-18] MEDS: HYDROCODONE/ACETAMINOPHEN 5/325MG TABLET PO PRN ×2 (09:09→14:54)
[2018-09-18] MEDS: GUAIFENESIN 600MG ER TABLET PO SCH (09:09)
[2018-09-18] MEDS: APIXABAN 5 MG TABLET PO SCH ×2 (09:10→18:22)
[2018-09-18] MEDS: IPRATROPIUM/ALBUTEROL 0.5-3(2.5)MG/3ML NEB INH PRN ×3 (09:46→16:50)
[2018-09-18 12:06] VITALS: BP 108/65
[2018-09-18] MEDS ORDERED: DILTIAZEM HCL 30MG TABLET PO SCH (14:00)
[2018-09-18 14:50] LABS: PROSTRATE SPECIFIC AG TOTAL 1.04 ng/mL (0.0-4.0)
[2018-09-18] MEDS ORDERED: DILTIAZEM HCL 60MG TABLET PO SCH (14:55)
[2018-09-18 15:47] VITALS: BP 112/92
[2018-09-18] MEDS: POTASSIUM CHLORIDE 20MEQ TABLET SR PO SCH (16:30)
[2018-09-18] MEDS: DILTIAZEM HCL 60MG TABLET PO SCH ×2 (16:31→21:36)
[2018-09-18] MEDS: FERROUS SULFATE 325MG TABLET PO SCH (18:22)
[2018-09-18 20:00] VITALS: BP 124/73
[2018-09-18] MEDS: BENZONATATE 100MG CAPSULE PO PRN (22:27)
[2018-09-19] VITALS: BP 96/74
[2018-09-19 04:00] VITALS: BP 114/83
[2018-09-19 07:07] LABS: BASOPHILS % 0.2 % (0.0-2.0); EOSINOPHILS % 0.1 % (0.0-5.0); HEMATOCRIT. 38.7 % (42.0-52.0); HEMOGLOBIN. 12.5 g/dL (14.0-18.0); LYMPHOCYTES % 14.7 % (20.0-50.0); MEAN CORPUSCULAR HEMOGLOBIN 25.6 pg (28.0-32.0); MEAN CORPUSCULAR VOLUME 78.9 fL (80.0-94.0); MEAN PLATELET VOLUME 9.4 fl (7.4-10.4); MONOCYTES % 12.3 % (2.0-8.0); NEUTROPHILS % 72.7 % (40.0-76.0); PLATELET 110 x1000/uL (130-400); RED CELL DISTRIBUTION WIDTH 22.1 % (11.6-14.6)
[2018-09-19] MEDS: BLOOD SUGAR DIAGNOSTIC STRIP TEST SCH ×4 (07:07→21:27)
[2018-09-19] MEDS: DILTIAZEM HCL 60MG TABLET PO SCH ×3 (07:10→21:26)
[2018-09-19 08:00] VITALS: BP 99/81
[2018-09-19] MEDS: IPRATROPIUM/ALBUTEROL 0.5-3(2.5)MG/3ML NEB INH PRN ×2 (08:08→17:52)
[2018-09-19] MEDS: INSULIN LISPRO 100 UNITS/ML SUBCUT SCH ×5 (08:10→21:28)
[2018-09-19] MEDS: LOSARTAN POTASSIUM 25 MG TABLET PO SCH (09:00)
[2018-09-19] MEDS: POTASSIUM CHLORIDE 20MEQ TABLET SR PO SCH (10:09)
[2018-09-19] MEDS: APIXABAN 5 MG TABLET PO SCH ×2 (10:09→17:46)
[2018-09-19] MEDS: FUROSEMIDE 40MG/4ML VIAL IV SCH ×2 (10:09→17:46)
[2018-09-19] MEDS: FERROUS SULFATE 325MG TABLET PO SCH ×3 (10:10→18:26)
[2018-09-19] MEDS: BENZONATATE 100MG CAPSULE PO PRN (10:10)
[2018-09-19 12:00] VITALS: BP 104/86
[2018-09-19 16:00] VITALS: BP 110/76
[2018-09-19 17:33] LABS: PLATELET ESTIMATE DECREASED
[2018-09-19 20:00] VITALS: BP 128/80
[2018-09-20] VITALS (7 sets, daily range): BP systolic 96–119; BP diastolic 67–91
[2018-09-20] MEDS: HYDROCODONE/ACETAMINOPHEN 5/325MG TABLET PO PRN (02:06)
[2018-09-20 05:14] LABS: HIV SCREEN 4G Non Reactive (Non Reactive)
[2018-09-20] MEDS: DILTIAZEM HCL 60MG TABLET PO SCH (06:00)
[2018-09-20] MEDS: BLOOD SUGAR DIAGNOSTIC STRIP TEST SCH ×4 (06:16→21:53)
[2018-09-20] MEDS: FUROSEMIDE 40MG/4ML VIAL IV SCH ×2 (06:16→17:53)
[2018-09-20 07:31] LABS: BASOPHILS % 0.4 % (0.0-2.0); EOSINOPHILS % 0.7 % (0.0-5.0); HEMATOCRIT. 36.1 % (42.0-52.0); HEMOGLOBIN. 11.7 g/dL (14.0-18.0); LYMPHOCYTES % 24.9 % (20.0-50.0); MEAN CORPUSCULAR HEMOGLOBIN 25.5 pg (28.0-32.0); MONOCYTES % 14.3 % (2.0-8.0); NEUTROPHILS % 59.7 % (40.0-76.0); PLATELET 108 x1000/uL (130-400); RED BLOOD CELL COUNT 4.57 mill/uL (4.7-6.1); RED CELL DISTRIBUTION WIDTH 21.6 % (11.6-14.6)
[2018-09-20] MEDS: INSULIN LISPRO 100 UNITS/ML SUBCUT SCH ×4 (08:10→21:00)
[2018-09-20] MEDS: LOSARTAN POTASSIUM 25 MG TABLET PO SCH (09:00)
[2018-09-20] MEDS: POTASSIUM CHLORIDE 20MEQ TABLET SR PO SCH (09:33)
[2018-09-20] MEDS: APIXABAN 5 MG TABLET PO SCH ×2 (09:33→17:59)
[2018-09-20] MEDS: FERROUS SULFATE 325MG TABLET PO SCH ×3 (09:33→17:53)
[2018-09-20] MEDS ORDERED: DILTIAZEM HCL 60MG TABLET PO SCH (14:00)
[2018-09-20] MEDS: IPRATROPIUM/ALBUTEROL 0.5-3(2.5)MG/3ML NEB INH PRN (14:15)
[2018-09-20] MEDS: DIGOXIN 125MCG TABLET PO SCH (17:53)
[2018-09-20] MEDS: BENZONATATE 100MG CAPSULE PO PRN (17:59)
[2018-09-20] MEDS: DILTIAZEM HCL 30MG TABLET PO SCH (21:53)
[2018-09-21] VITALS (7 sets, daily range): BP systolic 97–111; BP diastolic 64–89
[2018-09-21] MEDS: DILTIAZEM HCL 30MG TABLET PO SCH ×3 (06:00→21:20)
[2018-09-21] MEDS: IPRATROPIUM/ALBUTEROL 0.5-3(2.5)MG/3ML NEB INH PRN ×3 (06:02→20:59)
[2018-09-21 06:03] LABS: INR 2.2
[2018-09-21 06:09] LABS: BASOPHILS % 0.7 % (0.0-2.0); EOSINOPHILS % 1.6 % (0.0-5.0); HEMATOCRIT. 34.9 % (42.0-52.0); HEMOGLOBIN. 11.7 g/dL (14.0-18.0); LYMPHOCYTES % 28.1 % (20.0-50.0); MEAN CORPUSCULAR HEMOGLOBIN 26.1 pg (28.0-32.0); MEAN CORPUSCULAR VOLUME 77.8 fL (80.0-94.0); MEAN PLATELET VOLUME 9.8 fl (7.4-10.4); MONOCYTES % 14.5 % (2.0-8.0); NEUTROPHILS % 55.1 % (40.0-76.0); PLATELET 106 x1000/uL (130-400); RED BLOOD CELL COUNT 4.49 mill/uL (4.7-6.1); RED CELL DISTRIBUTION WIDTH 21.7 % (11.6-14.6)
[2018-09-21] MEDS: FUROSEMIDE 40MG/4ML VIAL IV SCH ×2 (06:21→16:37)
[2018-09-21 06:22] LABS: CHLORIDE 95 mEq/L (98-107)
[2018-09-21] MEDS: BLOOD SUGAR DIAGNOSTIC STRIP TEST SCH ×4 (07:40→21:21)
[2018-09-21] MEDS: INSULIN LISPRO 100 UNITS/ML SUBCUT SCH ×4 (08:10→21:00)
[2018-09-21] MEDS: LOSARTAN POTASSIUM 25 MG TABLET PO SCH ×2 (08:40→09:00)
[2018-09-21] MEDS: POTASSIUM CHLORIDE 20MEQ TABLET SR PO SCH (08:41)
[2018-09-21] MEDS: SPIRONOLACTONE 25MG TABLET PO SCH (08:41)
[2018-09-21] MEDS: APIXABAN 5 MG TABLET PO SCH ×2 (08:41→17:57)
[2018-09-21] MEDS: FERROUS SULFATE 325MG TABLET PO SCH ×3 (08:41→17:57)
[2018-09-21] MEDS: DIGOXIN 125MCG TABLET PO SCH (17:58)
[2018-09-22] VITALS: BP 111/89
[2018-09-22] MEDS ORDERED: HYDROCODONE/ACETAMINOPHEN 5/325MG TABLET PO PRN (02:00)
[2018-09-22] MEDS: BENZONATATE 100MG CAPSULE PO PRN (02:00)
[2018-09-22] MEDS: IPRATROPIUM/ALBUTEROL 0.5-3(2.5)MG/3ML NEB INH PRN (02:28)
[2018-09-22 04:00] VITALS: BP 107/80
[2018-09-22] MEDS: FUROSEMIDE 40MG/4ML VIAL IV SCH (06:22)
[2018-09-22] MEDS: BLOOD SUGAR DIAGNOSTIC STRIP TEST SCH (06:23)
[2018-09-22] MEDS: DILTIAZEM HCL 30MG TABLET PO SCH (06:24)
[2018-09-22 07:08] LABS: BASOPHILS % 0.8 % (0.0-2.0); EOSINOPHILS % 1.6 % (0.0-5.0); HEMATOCRIT. 36.1 % (42.0-52.0); HEMOGLOBIN. 11.7 g/dL (14.0-18.0); LYMPHOCYTES % 25.9 % (20.0-50.0); MEAN CORPUSCULAR HEMOGLOBIN 25.5 pg (28.0-32.0); MEAN CORPUSCULAR VOLUME 78.8 fL (80.0-94.0); MEAN PLATELET VOLUME 9.7 fl (7.4-10.4); MONOCYTES % 13.7 % (2.0-8.0); PLATELET 105 x1000/uL (130-400); RED BLOOD CELL COUNT 4.58 mill/uL (4.7-6.1)
[2018-09-22 07:21] LABS: CHLORIDE 94 mEq/L (98-107)
[2018-09-22 08:00] VITALS: BP 97/68
[2018-09-22] MEDS: INSULIN LISPRO 100 UNITS/ML SUBCUT SCH (08:10)
[2018-09-22] MEDS: FERROUS SULFATE 325MG TABLET PO SCH (08:50)
[2018-09-22] MEDS: SPIRONOLACTONE 25MG TABLET PO SCH (08:51)
[2018-09-22] MEDS: POTASSIUM CHLORIDE 20MEQ TABLET SR PO SCH (08:52)
[2018-09-22] MEDS: APIXABAN 5 MG TABLET PO SCH (08:52)
[2018-09-22] MEDS: LOSARTAN POTASSIUM 25 MG TABLET PO SCH (08:53)
[2018-09-22] MEDS ORDERED: FUROSEMIDE 40MG TABLET PO SCH (09:00)
[2018-09-22 11:20] LABS: HEPATITIS B SURFACE ANTIGEN NEGATIVE
[2018-09-22 11:48] LABS: HEPATITIS A AB IGM NEGATIVE (NEGATIVE)
[2018-09-22 12:37] VITALS: BP 100/75
== END 2018-09-22 13:20 | disposition home or self-care (01) | DRG 194 ==
LOC: ER 11:38 → 7WST 12:36 → EDBEDREQ 12:39 → EDBEDREQTM 12:39 → ENRESERV 12:45
PROVIDERS: ADMIT Internal Medicine; ATTEND Internal Medicine
DX: I13.0 Hypertensive heart and chronic kidney disease with heart failure and stage 1 through stage 4 chronic kidney disease, or unspecified chronic kidney disease (principal); D68.9 Coagulation defect, unspecified; D69.6 Thrombocytopenia, unspecified; R34 Anuria and oliguria; N17.9 Acute kidney failure, unspecified; E11.22 Type 2 diabetes mellitus with diabetic chronic kidney disease; I27.81 Cor pulmonale (chronic); I50.23 Acute on chronic systolic (congestive) heart failure; D50.9 Iron deficiency anemia, unspecified; E78.5 Hyperlipidemia, unspecified; F10.10 Alcohol abuse, uncomplicated; I48.2 Chronic atrial fibrillation; I25.5 Ischemic cardiomyopathy; N18.9 Chronic kidney disease, unspecified; K21.9 Gastro-esophageal reflux disease without esophagitis; R74.0 Nonspecific elevation of levels of transaminase and lactic acid dehydrogenase [LDH]; K74.60 Unspecified cirrhosis of liver; R18.8 Other ascites; I34.0 Nonrheumatic mitral (valve) insufficiency; F12.10 Cannabis abuse, uncomplicated; E80.4 Gilbert syndrome; F14.10 Cocaine abuse, uncomplicated; I25.10 Atherosclerotic heart disease of native coronary artery without angina pectoris; E78.00 Pure hypercholesterolemia, unspecified; Z79.01 Long term (current) use of anticoagulants; Z79.84 Long term (current) use of oral hypoglycemic drugs; Z95.5 Presence of coronary angioplasty implant and graft; Z95.1 Presence of aortocoronary bypass graft; I25.2 Old myocardial infarction; Z59.0 Homelessness
CPT/HCPCS: 36415; 71045; 76700; 80048; 80076; 80305; 80320; 82248; 82550; 82553; 82728; 82962; 83036; 83540; 83550; 83735; 83880; 84100; 84153; 84439; 84443; 84481; 84484; 86705; 86709; 86803; 87340; 87389; 93005; 93306; 94618; 94640; 99285; J1940; J2405; J3490; J7620; G0103; G0480

== ENCOUNTER 2018-11-18 20:39 | Inpatient (IN) | payer MEDICAID ==
[~2018-11-18] VITALS: Ht 180.3 cm; Wt 87.5 kg
[2018-11-18] MEDS ORDERED: ASPIRIN 325MG EC TABLET PO ONE (23:30)
[2018-11-18] MEDS ORDERED: FUROSEMIDE 40MG/4ML VIAL IV ONE (23:30)
[2018-11-18] MEDS ORDERED: NITROGLYCERIN OINT 1GM/INCH UDPKT TD ONE (23:30)
[2018-11-19] VITALS (39 sets, daily range): BP systolic 115–200; BP diastolic 64–107
[2018-11-19 00:02] LABS: BASOPHILS % 1.5 % (0.0-2.0); EOSINOPHILS % 4.4 % (0.0-5.0); HEMOGLOBIN. 15.9 g/dL (14.0-18.0); LYMPHOCYTES % 42.3 % (20.0-50.0); MEAN CORPUSCULAR HEMOGLOBIN 26.5 pg (28.0-32.0); MEAN CORPUSCULAR VOLUME 80.2 fL (80.0-94.0); MEAN PLATELET VOLUME 9.8 fl (7.4-10.4); MONOCYTES % 14.3 % (2.0-8.0); NEUTROPHILS % 37.5 % (40.0-76.0); PLATELET 139 x1000/uL (130-400); RED BLOOD CELL COUNT 5.99 mill/uL (4.7-6.1)
[2018-11-19 00:06] LABS: CHLORIDE 100 mEq/L (98-107)
[2018-11-19 00:26] LABS: INR 1.5; PROTHROMBIN TIME 15.4 sec (9.6-11.0)
[2018-11-19 01:26] LABS: *AMPHETAMINES SCREEN URINE NEGATIVE (NEGATIVE); *BARBITURATES SCREEN URINE NEGATIVE (NEGATIVE); *BENZODIAZEPINES SCREEN URINE NEGATIVE (NEGATIVE); *COCAINE SCREEN URINE NEGATIVE (NEGATIVE); CANNABINOID URINE SCREEN PRESUMTIVE POSITIVE (NEGATIVE); METHADONE URINE SCREEN NEGATIVE (NEGATIVE); OPIATES URINE SCREEN NEGATIVE (NEGATIVE)
[2018-11-19 01:27] LABS: PHENCYCLIDINE URINE SCREEN NEGATIVE (NEGATIVE)
[2018-11-19] MEDS ORDERED: DOBUTAMINE 250MG PREMIX 250 ML IV ONE ×2 (06:00→06:30)
[2018-11-19] MEDS ORDERED: GLUCAGON,HUMAN RECOMBINANT 1MG/VIAL IV ONE (07:00)
[2018-11-19] MEDS ORDERED: FUROSEMIDE 100MG/10ML VIAL IVP SCH (09:00)
[2018-11-19] MEDS ORDERED: ONDANSETRON HCL 4MG/2ML INJ IV PRN (09:15)
[2018-11-19] MEDS ORDERED: ACETAMINOPHEN 325MG TABLET PO PRN (09:15)
[2018-11-19] MEDS ORDERED: ATROPINE SULFATE 1MG/ML VIAL IV SCH (10:45)
[2018-11-19] MEDS ORDERED: ATROPINE SULFATE 1MG/ML VIAL IV PRN (10:45)
[2018-11-19] MEDS: DOBUTAMINE 250MG PREMIX 250 ML IV SCH ×2 (10:45→22:12)
[2018-11-19] MEDS ORDERED: DOBUTAMINE 250MG PREMIX 250 ML IV SCH (11:45)
[2018-11-19] MEDS: ENOXAPARIN 40MG/0.4ML SYR SUBCUT SCH (12:15)
[2018-11-19] MEDS: ASPIRIN 81MG EC TABLET PO SCH (12:15)
[2018-11-19] MEDS: ZOLPIDEM TARTRATE 5MG TABLET PO PRN (22:14)
[2018-11-20] VITALS (11 sets, daily range): BP systolic 119–150; BP diastolic 59–96
[2018-11-20] MEDS: DOBUTAMINE 250MG PREMIX 250 ML IV SCH (07:04)
[2018-11-20 07:17] LABS: HEMATOCRIT. 37.3 % (42.0-52.0); HEMOGLOBIN. 12.2 g/dL (14.0-18.0); MEAN CORPUSCULAR HEMOGLOBIN 26.1 pg (28.0-32.0); MEAN PLATELET VOLUME 9.7 fl (7.4-10.4); PLATELET 103 x1000/uL (130-400); RED BLOOD CELL COUNT 4.66 mill/uL (4.7-6.1); RED CELL DISTRIBUTION WIDTH 19.3 % (11.6-14.6)
[2018-11-20 07:20] LABS: CHLORIDE 102 mEq/L (98-107)
[2018-11-20] MEDS: ENOXAPARIN 40MG/0.4ML SYR SUBCUT SCH (09:00)
[2018-11-20] MEDS ORDERED: POTASSIUM CHLORIDE 20MEQ TABLET SR PO NR (09:00)
[2018-11-20] MEDS ORDERED: LOSARTAN POTASSIUM 25 MG TABLET PO SCH (09:00)
[2018-11-20 09:33] LABS: PLATELET ESTIMATE SLIGHTLY DECREASED
[2018-11-20] MEDS: POTASSIUM CHLORIDE 20MEQ TABLET SR PO SCH (10:00)
[2018-11-20] MEDS: LOSARTAN POTASSIUM 50 MG TABLET PO SCH ×2 (10:00→20:56)
[2018-11-20] MEDS: ASPIRIN 81MG EC TABLET PO SCH (10:50)
[2018-11-20] MEDS: FUROSEMIDE 100MG/10ML VIAL IVP SCH ×2 (10:51→17:40)
[2018-11-20 13:16] LABS: PHOSPHORUS 3.3 mg/dL (2.5-4.9)
[2018-11-20] MEDS: DIGOXIN 125MCG TABLET PO SCH (17:40)
[2018-11-20] MEDS ORDERED: MAGNESIUM 4 G PREMIX 100 ML IV SCH (18:00)
[2018-11-20] MEDS: AMLODIPINE 2.5MG TABLET PO SCH (20:59)
[2018-11-20] MEDS: ZOLPIDEM TARTRATE 5MG TABLET PO PRN (21:02)
[2018-11-21] VITALS (17 sets, daily range): BP systolic 66–156; BP diastolic 46–105
[2018-11-21 06:27] LABS: CHLORIDE 99 mEq/L (98-107)
[2018-11-21 06:33] LABS: PHOSPHORUS 3.9 mg/dL (2.5-4.9)
[2018-11-21 06:49] LABS: HEMATOCRIT. 40.6 % (42.0-52.0); HEMOGLOBIN. 13.4 g/dL (14.0-18.0); MEAN CORPUSCULAR HEMOGLOBIN 26.4 pg (28.0-32.0); MEAN CORPUSCULAR VOLUME 79.8 fL (80.0-94.0); MEAN PLATELET VOLUME 8.9 fl (7.4-10.4); PLATELET 122 x1000/uL (130-400); RED BLOOD CELL COUNT 5.09 mill/uL (4.7-6.1); RED CELL DISTRIBUTION WIDTH 18.6 % (11.6-14.6)
[2018-11-21] MEDS: LOSARTAN POTASSIUM 50 MG TABLET PO SCH ×2 (08:42→20:58)
[2018-11-21] MEDS: FUROSEMIDE 100MG/10ML VIAL IVP SCH ×2 (08:42→18:21)
[2018-11-21] MEDS: POTASSIUM CHLORIDE 20MEQ TABLET SR PO SCH (08:43)
[2018-11-21] MEDS: ASPIRIN 81MG EC TABLET PO SCH (08:44)
[2018-11-21] MEDS: ENOXAPARIN 40MG/0.4ML SYR SUBCUT SCH (08:45)
[2018-11-21] MEDS: AMLODIPINE 2.5MG TABLET PO SCH ×2 (08:56→20:59)
[2018-11-21 10:37] LABS: PLATELET ESTIMATE SLIGHTLY DECREASED
[2018-11-21] MEDS: DIGOXIN 125MCG TABLET PO SCH (18:21)
[2018-11-21] MEDS: ZOLPIDEM TARTRATE 5MG TABLET PO PRN (20:59)
[2018-11-22] VITALS (9 sets, daily range): BP systolic 98–142; BP diastolic 45–80
[2018-11-22] MEDS: FUROSEMIDE 100MG/10ML VIAL IVP SCH (06:35)
[2018-11-22 07:02] LABS: HEMATOCRIT. 42.2 % (42.0-52.0); HEMOGLOBIN. 13.8 g/dL (14.0-18.0); MEAN CORPUSCULAR HEMOGLOBIN 26.1 pg (28.0-32.0); MEAN CORPUSCULAR VOLUME 79.8 fL (80.0-94.0); MEAN PLATELET VOLUME 9.2 fl (7.4-10.4); PLATELET 136 x1000/uL (130-400); RED BLOOD CELL COUNT 5.29 mill/uL (4.7-6.1); RED CELL DISTRIBUTION WIDTH 18.7 % (11.6-14.6)
[2018-11-22 07:05] LABS: CHLORIDE 97 mEq/L (98-107)
[2018-11-22] MEDS: POTASSIUM CHLORIDE 20MEQ TABLET SR PO SCH (08:15)
[2018-11-22] MEDS: ENOXAPARIN 40MG/0.4ML SYR SUBCUT SCH (08:16)
[2018-11-22] MEDS: AMLODIPINE 2.5MG TABLET PO SCH (08:28)
[2018-11-22] MEDS: LOSARTAN POTASSIUM 50 MG TABLET PO SCH (08:28)
[2018-11-22 08:57] LABS: PLATELET ESTIMATE NORMAL
[2018-11-22] MEDS: ASPIRIN 81MG EC TABLET PO SCH (12:28)
[2018-11-22] MEDS ORDERED: CARVEDILOL 3.125 MG TABLET PO SCH (21:00)
== END 2018-11-22 14:15 | disposition home or self-care (01) | DRG 194 ==
LOC: ER 20:39 → 3WST 11-19 01:58 → EDBEDREQ 11-19 02:00 → EDBEDREQTM 11-19 02:00 → EDBEDREQSVC 11-19 04:53 → ENRESERV 11-19 07:40
PROVIDERS: ADMIT Internal Medicine; ATTEND Internal Medicine
PROC: 5A09357 Assistance with Respiratory Ventilation, Less than 24 Consecutive Hours, Continuous Positive Airway Pressure (ICD-10-PCS; principal; 2018-11-19)
DX: I13.0 Hypertensive heart and chronic kidney disease with heart failure and stage 1 through stage 4 chronic kidney disease, or unspecified chronic kidney disease (principal); J96.90 Respiratory failure, unspecified, unspecified whether with hypoxia or hypercapnia; D68.9 Coagulation defect, unspecified; D69.6 Thrombocytopenia, unspecified; E11.22 Type 2 diabetes mellitus with diabetic chronic kidney disease; I27.81 Cor pulmonale (chronic); I95.9 Hypotension, unspecified; I50.23 Acute on chronic systolic (congestive) heart failure; E78.5 Hyperlipidemia, unspecified; I25.10 Atherosclerotic heart disease of native coronary artery without angina pectoris; I34.0 Nonrheumatic mitral (valve) insufficiency; I25.5 Ischemic cardiomyopathy; I48.1 Persistent atrial fibrillation; K76.1 Chronic passive congestion of liver; E78.00 Pure hypercholesterolemia, unspecified; F17.210 Nicotine dependence, cigarettes, uncomplicated; N18.9 Chronic kidney disease, unspecified; R29.6 Repeated falls; R00.1 Bradycardia, unspecified; E80.6 Other disorders of bilirubin metabolism; F12.10 Cannabis abuse, uncomplicated; K76.9 Liver disease, unspecified; Z95.1 Presence of aortocoronary bypass graft; Z91.19 Patient's noncompliance with other medical treatment and regimen; I25.2 Old myocardial infarction; Z79.899 Other long term (current) drug therapy
CPT/HCPCS: 36415; 71045; 80048; 80305; 82962; 83735; 83880; 84100; 84132; 84484; 93005; 93306; 96374; 97162; 99291; J1250; J1610; J1650; J1940; J3475